=== PATIENT | female | born 1990 | race Hispanic/Latino ===

== ENCOUNTER 2017-12-07 09:51 | Emergency (ER) | payer OTHER | END 2017-12-07 10:45 | disposition home or self-care (01) | LOC: EDH 09:51 | DX: O99.612 Diseases of the digestive system complicating pregnancy, second trimester (principal); K02.9 Dental caries, unspecified; Z3A.15 15 weeks gestation of pregnancy | CPT/HCPCS: 99281 ==

== ENCOUNTER 2018-04-17 12:30 | Observation (INO) | payer MEDICAID ==
[~2018-04-17] VITALS: Ht 157.5 cm; Wt 84.4 kg
[2018-04-17 13:30] LABS: MEAN CORPUSCULAR HGB CONC 32.1 g/dL (32.0-36.0); MEAN CORPUSCULAR VOLUME 74.7 fL (79-99); NUCLEATED RED BLOOD CELLS 0.1 % (0.0-0.19); PLATELET COUNT (AUTO) 198 K/uL (130-400); RED BLOOD CELL COUNT(AUTO) 3.75 MIL/uL (4.00-5.50); RED CELL DISTRIBUTION WIDTH 17.9 % (11.0-15.5); WHITE BLOOD COUNT (AUTO) 8.2 K/uL (4.8-10.8)
[2018-04-17] MEDS ORDERED: LACTATED RINGERS 1000ML IV SCH (13:30)
[2018-04-17 13:35] LABS: APPEARANCE,URINE Cloudy (CLEAR); BILIRUBIN,URINE Negative (NEGATIVE); COLOR,URINE Yellow (YELLOW); GLUCOSE, URINE (UA) Negative (NEGATIVE); KETONES,URINE Negative (NEGATIVE); LEUKOCYTE ESTERASE ,URINE Large (NEGATIVE); NITRATE,URINE Negative (NEGATIVE); OCCULT BLOOD,URINE Nonhemolyzed Trace (NEGATIVE); PROTEIN,URINE Trace (NEGATIVE)
[2018-04-17 13:44] LABS: BACTERIA,URINE Few /HPF (None Seen); MUCUS,URINE Rare LPF (None Seen); RBC,URINE 0-1 /HPF (0-1); SQUAMOUS EPITHELIAL CELL,UR Moderate /HPF (0-2)
[2018-04-17] MEDS ORDERED: CEFTRIAXONE SODIUM 1 GM IVP SCH (13:45)
[2018-04-18 10:22] LABS: HEPATITIS Bs ANTIGEN SCREEN P Negative (Negative)
== END 2018-04-17 14:52 | disposition home or self-care (01) ==
LOC: EDH 12:30 → LDH 12:31
PROVIDERS: ADMIT Obstetrics & Gynecology; ATTEND Obstetrics & Gynecology
DX: O62.9 Abnormality of forces of labor, unspecified (principal); O26.853 Spotting complicating pregnancy, third trimester; O26.893 Other specified pregnancy related conditions, third trimester; R10.9 Unspecified abdominal pain; Z3A.37 37 weeks gestation of pregnancy
CPT/HCPCS: 36415; 81001; 85027; 86592; 86850; 86900; 86901; 87340; 96374; 99284; G0378 ×2; J0696; J7120; 96360

== ENCOUNTER 2019-06-14 09:44 | Emergency (ER) | payer MEDICAID, OTHER ==
[2019-06-14] MEDS ORDERED: HYDROCODONE/ACETAMINOPHEN 10/325 MG TAB ONE (10:07)
[2019-06-14] MEDS ORDERED: KETOROLAC TROMETHAMINE 60 MG/2 ML VIAL ONE (10:07)
== END 2019-06-14 12:05 | disposition home or self-care (01) ==
LOC: EDH 09:44
DX: S13.9XXA Sprain of joints and ligaments of unspecified parts of neck, initial encounter (principal); S33.5XXA Sprain of ligaments of lumbar spine, initial encounter; S09.90XA Unspecified injury of head, initial encounter; Z98.51 Tubal ligation status; Z98.890 Other specified postprocedural states; W01.0XXA Fall on same level from slipping, tripping and stumbling without subsequent striking against object, initial encounter; Y93.89 Activity, other specified; Y92.89 Other specified places as the place of occurrence of the external cause; Y99.8 Other external cause status
CPT/HCPCS: 70450; 72100; 72125; 96372; J1885

== ENCOUNTER 2023-03-05 14:11 | Emergency (ER) | payer OTHER ==
[~2023-03-05] VITALS: Ht 154.9 cm; Wt 67.1 kg
[2023-03-05 14:12] VITALS: BP 128/68; PULSE 90; RESP 14
[2023-03-05 15:39] LABS: RAPID GROUP A STREP negative (NEGATIVE)
[2023-03-05 15:44] LABS: SARS-CoV-2, RNA, NAAT NEGATIVE SARS CoV-2 (NEGATIVE)
[2023-03-05 15:50] LABS: INFLUENZA TYPE B Negative For Type B (NEGATIVE)
[2023-03-05 15:57] LABS: INFLUENZA TYPE A Positive For Type A (NEGATIVE)
[2023-03-05] MEDS ORDERED: CLIN-141 PO (16:45)
[2023-03-05] MEDS ORDERED: IBUP-2070 PO (16:45)
[2023-03-05] MEDS ORDERED: AMOX-426 PO (16:45)
[2023-03-05] MEDS ORDERED: ACET-2079 PO (16:45)
[2023-03-05] MEDS ORDERED: AMOX/CLAV 875/125MG TAB PO ONE (17:00)
[2023-03-05] MEDS ORDERED: CLINDAMYCIN 150 MG CAP PO ONE (17:00)
[2023-03-05] MEDS ORDERED: HYDROCODONE/ACETAMINOPHEN 10/325 MG TAB PO ONE (17:00)
== END 2023-03-05 17:10 | disposition home or self-care (01) ==
LOC: EDH 14:11
DX: J10.1 Influenza due to other identified influenza virus with other respiratory manifestations (principal); S02.5XXA Fracture of tooth (traumatic), initial encounter for closed fracture; K04.7 Periapical abscess without sinus; Z20.822 Contact with and (suspected) exposure to COVID-19; Z90.49 Acquired absence of other specified parts of digestive tract; Z98.890 Other specified postprocedural states; X58.XXXA Exposure to other specified factors, initial encounter; Y93.89 Activity, other specified; Y92.89 Other specified places as the place of occurrence of the external cause; Y99.8 Other external cause status
CPT/HCPCS: 99284; 87635; 87880; 87804 ×2; C9803

== ENCOUNTER 2023-10-09 01:07 | Inpatient (IN) | payer SELFPAY ==
[~2023-10-09] VITALS: Ht 154.9 cm; Wt 68.5 kg
[~2023-10-09 01:07] MED LIST: ACET-2079 PO; AMOX-426 PO; CLIN-141 PO; IBUP-2070 PO
[2023-10-09 01:33] LABS: BASOPHILS # (AUTO) 0.07 K/uL (0.00-0.20); BASOPHILS % (AUTO) 0.6 % (0.0-5.0); EOSINOPHILS # (AUTO) 0.18 K/uL (0.00-0.70); EOSINOPHILS % (AUTO) 1.6 % (0.0-8.0); HEMATOCRIT 22.8 % (36-48); IMMATURE GRANULOCYTE ABSOLUTE 0.04 K/uL (0-1); LYMPHOCYTES # (AUTO) 3.2 K/uL (1.0-4.8); LYMPHOCYTES % (AUTO) 28.1 % (21.0-51.0); MEAN CORPUSCULAR HEMOGLOBIN 17.2 pg (27.0-33.0); MEAN CORPUSCULAR HGB CONC 26.3 g/dL (32.0-36.0); MEAN CORPUSCULAR VOLUME 65.5 fL (79-99); MONOCYTES # (AUTO) 0.6 K/uL (0.1-1.0); MONOCYTES % (AUTO) 5.7 % (3.0-13.0); NEUTROPHILS # (AUTO) 7.2 K/uL (1.8-7.7); NEUTROPHILS % (AUTO) 63.6 % (40.0-77.0); PLATELET COUNT (AUTO) 252 K/uL (130-400); RED BLOOD CELL COUNT(AUTO) 3.48 MIL/uL (4.00-5.50); RED CELL DISTRIBUTION WIDTH 19.1 % (11.0-15.5); WHITE BLOOD COUNT (AUTO) 11.3 K/uL (4.8-10.8)
[2023-10-09 01:41] LABS: SARS-CoV-2, RNA, NAAT NEGATIVE SARS CoV-2 (NEGATIVE)
[2023-10-09 01:44] LABS: INFLUENZA TYPE A Negative For Type A (NEGATIVE); INFLUENZA TYPE B Negative For Type B (NEGATIVE)
[2023-10-09 01:44] LABS: CREATININE 0.7 mg/dL (0.5-1.0); POTASSIUM 3.5 mmol/L (3.5-5.1)
[2023-10-09 01:48] LABS: ALBUMIN 3.9 g/dL (3.5-5.0); BILIRUBIN,TOTAL 0.6 mg/dL (0.2-1.0); TOTAL PROTEIN, SERUM 7.4 g/dL (6.0-8.3)
[2023-10-09] MEDS ORDERED: IOHEXOL-350 50ML VIAL IV ONE (03:13)
[2023-10-09] MEDS: MORPHINE 4 MG SYG IVP ONE ×2 (03:21→07:26)
[2023-10-09] MEDS: LACTATED RINGERS 1000ML 957 ML IV ONE (03:23)
[2023-10-09] MEDS: CLINDAMYCIN IVPB 300MG/50ML 50 ML IV SCH (07:26)
[2023-10-09] MEDS: FENTANYL CITRATE PF 50 MCG/1 ML 2ML VIAL IVP ONE (08:53)
[2023-10-09] MEDS: SOLU-MEDROL 125MG VIAL IVP ONE (08:53)
[2023-10-09] MEDS: ONDANSETRON 4MG INJ IVP ONE (09:10)
[2023-10-09 11:17] LABS: APPEARANCE,URINE CLEAR (CLEAR); BILIRUBIN,URINE NEGATIVE (NEGATIVE); COLOR,URINE LIGHT-YELLOW (YELLOW); GLUCOSE, URINE (UA) NEGATIVE (NEGATIVE); KETONES,URINE NEGATIVE (NEGATIVE); LEUKOCYTE ESTERASE ,URINE 500 Leu/uL (NEGATIVE); NITRATE,URINE NEGATIVE (NEGATIVE); OCCULT BLOOD,URINE NEGATIVE (NEGATIVE); PROTEIN,URINE NEGATIVE (NEGATIVE); UROBILINOGEN,URINE 0.2 mg/dL (0.2-1.0)
[2023-10-09 11:29] LABS: ADD UA MICROSCOPIC YES
[2023-10-09] MEDS ORDERED: 0.9%NACL 50ML IV SCH (11:30)
[2023-10-09 11:38] LABS: MUCUS,URINE RARE LPF (None Seen); SQUAMOUS EPITHELIAL CELL,UR MOD /HPF (0-2)
[2023-10-09 12:31] LABS: HEMATOCRIT 26.2 % (36-48)
[2023-10-09 12:43] LABS: HEMOGLOBIN A1C 4.9 % (4.0-6.0)
[2023-10-09] MEDS: 0.9%NACL 1000ML 1,000 ML IV SCH (12:52)
[2023-10-09] MEDS: ZOSYN 3.375GM +NS 50ML IVPB SCH (12:52)
[2023-10-09 13:13] LABS: THYROID STIMULATING HORMONE 1.05 uIU/mL (0.36-3.74)
[2023-10-09 13:35] LABS: % IRON SATURATION 14.5 % (22-44)
[2023-10-09 14:44] LABS: RETICULOCYTE % (AUTO) 1.39 % (0.42-2.23)
[2023-10-09 15:45] VITALS: BP 145/75; PULSE 77; RESP 20
[2023-10-09] MEDS: FAMOTIDINE 20MG VIAL IV SCH (19:47)
[2023-10-09] MEDS: KETOROLAC 15MG/ML VIAL (15MG/ML) IV PRN (19:49)
[2023-10-09 20:00] VITALS: BP 124/67; PULSE 89; RESP 20; O2SAT 99
[2023-10-10] VITALS: BP 108/59; PULSE 73; RESP 20
[2023-10-10 04:00] VITALS: BP 110/68; PULSE 59; RESP 20
[2023-10-10 07:15] LABS: BASOPHILS # (AUTO) 0.04 K/uL (0.00-0.20); BASOPHILS % (AUTO) 0.3 % (0.0-5.0); EOSINOPHILS # (AUTO) 0.01 K/uL (0.00-0.70); EOSINOPHILS % (AUTO) 0.1 % (0.0-8.0); HEMATOCRIT 24.1 % (36-48); IMMATURE GRANULOCYTE ABSOLUTE 0.05 K/uL (0-1); LYMPHOCYTES # (AUTO) 2.5 K/uL (1.0-4.8); LYMPHOCYTES % (AUTO) 19.8 % (21.0-51.0); MEAN CORPUSCULAR HEMOGLOBIN 19.2 pg (27.0-33.0); MEAN CORPUSCULAR HGB CONC 27.4 g/dL (32.0-36.0); MEAN CORPUSCULAR VOLUME 70.1 fL (79-99); MONOCYTES # (AUTO) 0.7 K/uL (0.1-1.0); MONOCYTES % (AUTO) 5.7 % (3.0-13.0); NEUTROPHILS # (AUTO) 9.4 K/uL (1.8-7.7); NEUTROPHILS % (AUTO) 73.7 % (40.0-77.0); PLATELET COUNT (AUTO) 226 K/uL (130-400); RED BLOOD CELL COUNT(AUTO) 3.44 MIL/uL (4.00-5.50); RED CELL DISTRIBUTION WIDTH 22.8 % (11.0-15.5); WHITE BLOOD COUNT (AUTO) 12.7 K/uL (4.8-10.8)
[2023-10-10 07:24] LABS: CREATININE 0.6 mg/dL (0.5-1.0); POTASSIUM 3.8 mmol/L (3.5-5.1)
[2023-10-10 08:00] VITALS: BP 141/66; PULSE 69; RESP 18; O2SAT 97
[2023-10-10 11:49] LABS: RETICULOCYTE % (AUTO) 1.55 % (0.42-2.23)
[2023-10-10 12:00] VITALS: BP 127/69; PULSE 58; RESP 18
[2023-10-10] MEDS ORDERED: IRON SUCROSE COMPLEX 300 MG in 0.9% NACL 250ML 250 ML IV SCH (14:00)
[2023-10-10] MEDS ORDERED: COMPOUND IV MISC 1 EACH IVSOLN MISC PRN (14:30)
[2023-10-10] MEDS ORDERED: VANCOMYCIN PROTOCOL PER PHARMACY IV SCH (15:30)
[2023-10-10] MEDS ORDERED: BENZONATATE 100 MG CAPSULE PO PRN (15:30)
[2023-10-10] MEDS: GUAIFENESIN-CODEINE 5 ML SYRUP PO PRN (15:38)
[2023-10-10] MEDS: AMP/SULBAC 3GM+NS 100ML 100 ML IV SCH (15:40)
[2023-10-10 16:00] VITALS: BP 116/71; PULSE 64; RESP 20
[2023-10-10] MEDS: VANCOMYCIN 1G/250ML KIT 250 ML IV SCH (16:49)
[2023-10-10 20:00] VITALS: BP 124/64; PULSE 70; RESP 17; O2SAT 98
[2023-10-10] MEDS: IRON SUCROSE COMPLEX 300 MG in 0.9% NACL 250ML 250 ML IV SCH (20:38)
[2023-10-11] VITALS (8 sets, daily range): BP systolic 113–140; BP diastolic 59–77; PULSE 50–78; RESP 16–18; O2SAT 98–99
[2023-10-11] MEDS ORDERED: NITROGLYCERIN 0.4 MG SL TAB SL PRN (02:00)
[2023-10-11 05:06] LABS: BASOPHILS # (AUTO) 0.07 K/uL (0.00-0.20); BASOPHILS % (AUTO) 0.8 % (0.0-5.0); EOSINOPHILS # (AUTO) 0.13 K/uL (0.00-0.70); EOSINOPHILS % (AUTO) 1.4 % (0.0-8.0); HEMATOCRIT 26.1 % (36-48); IMMATURE GRANULOCYTE ABSOLUTE 0.03 K/uL (0-1); LYMPHOCYTES # (AUTO) 3.7 K/uL (1.0-4.8); LYMPHOCYTES % (AUTO) 40.2 % (21.0-51.0); MEAN CORPUSCULAR HEMOGLOBIN 20.7 pg (27.0-33.0); MEAN CORPUSCULAR HGB CONC 28.4 g/dL (32.0-36.0); MEAN CORPUSCULAR VOLUME 72.9 fL (79-99); MONOCYTES # (AUTO) 0.4 K/uL (0.1-1.0); MONOCYTES % (AUTO) 4.6 % (3.0-13.0); NEUTROPHILS # (AUTO) 4.8 K/uL (1.8-7.7); NEUTROPHILS % (AUTO) 52.7 % (40.0-77.0); PLATELET COUNT (AUTO) 187 K/uL (130-400); RED BLOOD CELL COUNT(AUTO) 3.58 MIL/uL (4.00-5.50); RED CELL DISTRIBUTION WIDTH 22.6 % (11.0-15.5); WHITE BLOOD COUNT (AUTO) 9.1 K/uL (4.8-10.8)
[2023-10-11 05:57] LABS: CREATININE 0.7 mg/dL (0.5-1.0); MAGNESIUM 1.8 mg/dL (1.80-2.40); PHOSPHORUS 4.1 mg/dL (2.5-4.9); POTASSIUM 3.4 mmol/L (3.5-5.1)
[2023-10-11] MEDS ORDERED: PHENOL 177 ML BOTTLE PO PRN (11:30)
[2023-10-11] MEDS: VANCOMYCIN 1G/250ML KIT 250 ML IV SCH (21:40)
[2023-10-11] MEDS: MORPHINE 2 MG SYG IVP PRN (21:47)
[2023-10-11] MEDS ORDERED: POTASSIUM CHLORIDE 10% ELIXIR 20 MEQ/15 ML UDCUP PO PRN (22:00)
[2023-10-11] MEDS ORDERED: POTASSIUM CHLORIDE 20MEQ/100ML 100 ML IV PRN (22:00)
[2023-10-12] VITALS (7 sets, daily range): BP systolic 98–136; BP diastolic 49–70; PULSE 50–66; RESP 16–18; O2SAT 99
[2023-10-12] MEDS: IRON SUCROSE COMPLEX 300 MG in 0.9% NACL 250ML 250 ML IV SCH (01:37)
[2023-10-12 05:05] LABS: BASOPHILS # (AUTO) 0.08 K/uL (0.00-0.20); EOSINOPHILS # (AUTO) 0.19 K/uL (0.00-0.70); EOSINOPHILS % (AUTO) 2.4 % (0.0-8.0); HEMATOCRIT 26.5 % (36-48); IMMATURE GRANULOCYTE ABSOLUTE 0.03 K/uL (0-1); LYMPHOCYTES # (AUTO) 3.6 K/uL (1.0-4.8); LYMPHOCYTES % (AUTO) 45.2 % (21.0-51.0); MEAN CORPUSCULAR HEMOGLOBIN 20.8 pg (27.0-33.0); MEAN CORPUSCULAR HGB CONC 29.1 g/dL (32.0-36.0); MEAN CORPUSCULAR VOLUME 71.6 fL (79-99); MONOCYTES # (AUTO) 0.3 K/uL (0.1-1.0); NEUTROPHILS # (AUTO) 3.8 K/uL (1.8-7.7); PLATELET COUNT (AUTO) 203 K/uL (130-400); RED CELL DISTRIBUTION WIDTH 24.1 % (11.0-15.5)
[2023-10-12 05:21] LABS: CREATININE 0.6 mg/dL (0.5-1.0); POTASSIUM 3.5 mmol/L (3.5-5.1)
[2023-10-12] MEDS: KCL 20 MEQ ERTAB PO PRN (06:14)
[2023-10-13] VITALS: BP 130/68; PULSE 58; RESP 18
[2023-10-13] MEDS: VANCOMYCIN 1G/250ML KIT 250 ML IV SCH
[2023-10-13 04:00] VITALS: BP 128/72; PULSE 69; RESP 18
[2023-10-13 05:23] LABS: BASOPHILS # (AUTO) 0.09 K/uL (0.00-0.20); EOSINOPHILS % (AUTO) 3.2 % (0.0-8.0); HEMATOCRIT 28.6 % (36-48); LYMPHOCYTES # (AUTO) 4.1 K/uL (1.0-4.8); MEAN CORPUSCULAR HEMOGLOBIN 21.2 pg (27.0-33.0); MEAN CORPUSCULAR HGB CONC 28.7 g/dL (32.0-36.0); MEAN CORPUSCULAR VOLUME 73.9 fL (79-99); MONOCYTES # (AUTO) 0.4 K/uL (0.1-1.0); MONOCYTES % (AUTO) 4.7 % (3.0-13.0); NEUTROPHILS # (AUTO) 4.3 K/uL (1.8-7.7); PLATELET COUNT (AUTO) 228 K/uL (130-400); RED BLOOD CELL COUNT(AUTO) 3.87 MIL/uL (4.00-5.50); RED CELL DISTRIBUTION WIDTH 25.7 % (11.0-15.5); WHITE BLOOD COUNT (AUTO) 9.3 K/uL (4.8-10.8)
[2023-10-13 05:36] LABS: ALBUMIN 2.8 g/dL (3.5-5.0); BILIRUBIN,TOTAL 0.4 mg/dL (0.2-1.0); CREATININE 0.6 mg/dL (0.5-1.0); MAGNESIUM 1.9 mg/dL (1.80-2.40); POTASSIUM 3.5 mmol/L (3.5-5.1)
[2023-10-13 08:00] VITALS: BP 130/70; PULSE 51; RESP 16
[2023-10-13 08:01] LABS: LYMPHOCYTES % (MANUAL) 43 % (22-44); MAN.DIFF COMMENT-IMPRESSION MANUAL DIFFERENTIAL; MONOCYTES % (MANUAL) 1 % (2-9); PLATELET MORPHOLOGY COMMENT ADEQUATE; SEGMENTED NEUTROPHILS % 56 % (40-70); TOTAL CELLS COUNTED 100
[2023-10-13 08:12] VITALS: O2SAT 99
[2023-10-13] MEDS ORDERED: FOLI20CA PO (11:36)
[2023-10-13] MEDS ORDERED: FERS325 PO (11:36)
[2023-10-13 12:00] VITALS: BP_SYST 120; BP_SYST 127; BP_DIAS 67; BP_DIAS 84; PULSE 54; PULSE 74; RESP 16; RESP 18
[2023-10-13 16:00] VITALS: BP 120/75; PULSE 54; RESP 20
== END 2023-10-13 17:14 | disposition home or self-care (01) | DRG 603 ==
LOC: EDH 01:07 → EDHIP 01:08 → 3CH 15:40 → 3DH 10-10 18:10
PROVIDERS: ADMIT Internal Medicine; ATTEND Internal Medicine
PROC: 30233N1 Transfusion of Nonautologous Red Blood Cells into Peripheral Vein, Percutaneous Approach (ICD-10-PCS; principal; 2023-10-09)
DX: L03.211 Cellulitis of face (principal); Z20.822 Contact with and (suspected) exposure to COVID-19; N92.0 Excessive and frequent menstruation with regular cycle; K02.9 Dental caries, unspecified; D50.9 Iron deficiency anemia, unspecified; E66.9 Obesity, unspecified; K04.7 Periapical abscess without sinus; K83.8 Other specified diseases of biliary tract; Z98.891 History of uterine scar from previous surgery; Z68.28 Body mass index [BMI] 28.0-28.9, adult; Z90.49 Acquired absence of other specified parts of digestive tract
CPT/HCPCS: 36415; 36430; 70487; 71045; 80048; 80053; 80202; 81001; 82607; 82728; 83036; 83605; 83735; 84100; 84145; 84443; 84484; 84703; 85014; 85018; 85025; 85045; 86140; 86850; 86900; 86901; 86923; 87086; 87635; 87804; 87880; 93005; G0378; J0295; J1756; J1885; J2270; J2405; J2543; J2919; J3010; J3370; J3490; J7030; J7050; J7120; P9016; Q9967

== ENCOUNTER 2024-06-26 12:53 | Emergency (ER) | payer SELFPAY ==
[~2024-06-26] VITALS: Ht 154.9 cm; Wt 68.9 kg
[~2024-06-26 12:53] MED LIST changes: -ACET-2079 PO; -AMOX-426 PO; -CLIN-141 PO; +FERS325 PO; +FOLI20CA PO; -IBUP-2070 PO
--- NOTE | 2024-06-26 13:25 | ERN ---
General Chief Complaint: Rib Pain Stated Complaint: RIGHT RIB PAIN Time Seen by MD: 12:56 Source: patient History of Present Illness Initial Comments Patient is a 34-year-old female coming in with a right-sided rib pain. Patient states since this rib pain began about a week ago after she fell down. She states that the pain is localized to the right rib area. No shortness of breath. Allergies: Coded Allergies: No Known Drug Allergies (Unverified Allergy, Unknown, 04/17/18) Home Meds Active Scripts Ferrous Sulfate (Ferrous Sulfate) 325 Mg (65 Mg Iron) Ectab, 325 MG PO DAILY, #30 TAB.EC Prov:MITCHEL BRIZUELA SHANK CARRIER 10/13/23 Folic Acid (Folic Acid) 20 Mg Capsule, 1 MG PO DAILY, #30 CAP Prov:MITCHEL BRIZUELA SHANK CARRIER 10/13/23 Past Medical History Past Medical History: Anemia Past Surgical History: Cholecystectomy, Social History Social History: Negative, Lives with family Female( History) LMP: May 21, 2024 ROS Dictation CONSTITUTIONAL: No chills, no fever, no weakness, no diaphoresis, no malaise. HEAD/FACE: No signs of trauma. EENT: No eye pain, no blurred vision, no tearing, no double vision, no ear pain, no ear discharge, no nose pain, no nasal congestion, no throat pain, no throat swelling, no mouth pain. RESPIRATORY: No cough, no orthopnea, no SOB, no stridor, no wheezing. CARDIOVASCULAR: No chest pain, no edema, no palpitations, no syncope. GASTROINTESTINAL/ABDOMINAL: No abdominal pain, no constipation, no diarrhea, no nausea, no vomiting. GENITOURINARY: No abnormal discharge, no dysuria, no frequent urination, no hematuria. No complaints of pain in the genitals. MUSCULOSKELETAL: No back pain, no gout, no joint pain, no joint swelling, no muscle pain, no muscle stiffness, no neck pain. INTEGUMENTARY: No change in color, no change in hair/nails, no dryness, no lesion, no lumps, no rash. NEUROLOGICAL/PSYCH: No anxiety, not depressed, no emotional problem, no headache, no numbness, no pre-existing deficit, no history of seizures, no tremors, no weakness. HEMATOLOGIC/LYMPHATIC: Not anemic, no history of blood clots, no apparent bleeding, no bruising, glands not swollen. All Systems Negative, Except as Noted. Physical Exam Physical Exam Dictation VITAL SIGNS: Reviewed. GENERAL APPEARANCE: Alert, oriented x3, no acute distress, obese. HEAD AND FACE: Non-traumatic. EYES: PERRL, pink conjunctivas, eyelid no trauma, anterior chamber clear. EARS: Pinnas intact and no signs of trauma or erythema. Ear canals clear and no discharge. TMs no erythema. NOSE: No discharge, no bleeding. OROPHARYNX: Mouth normal, teeth no caries, tongue pink. Pharynx clear, no erythema. Tonsils no exudates, no abscesses noted. Mucous membrane moist. NECK: Supple, non-tender, no thyromegaly, no masses, no JVD, no bruits. BREAST: Deferred. CHEST: No tenderness, no crepitus, no paradoxical movement, no retractions. LUNGS: Clear, well-ventilated, symmetric, no rales, no wheezing, no rhonchi, no stridor, good breath sounds bilaterally. HEART: Regular rate, regular rhythm, no murmur, no gallops. VASCULAR: No peripheral edema. ABDOMEN: Soft, positive bowel sounds, nondistended, no guarding, nontender, no rebound, no masses no hepatomegaly, no splenomegaly, no Fisher's sign, no hernias. RECTAL: Deferred. GENITAL: Deferred. NEUROLOGICAL: Normal speech, gross motor function intact, gross sensory function intact. MUSCULOSKELETAL: Neck nontender, full range of motion, back nontender, full range of motion. EXTREMITIES: Nontender, full range of motion. SKIN: Color pink, dry, no turgor, no rash, no lacerations, no abrasions, no contusions. LYMPHATICS: Deferred. Results Laboratory and Microbiology Labs Reviewed?: Yes EKG/XRAY/US/CT/MRI X-RAY Comment [place] [id number] [place] [id number] IMAGING REPORT Signed PATIENT: FAVIOLA HARRELL MR#: [id number] : 1990 SEX: F AGE: 34 LOCATION: [facility] ORDER [id number] STATUS: REG REPORT#: [id number] SERVICE 1505 REASON: fall ORDERING PHYSICIAN: ALEX WESTFALL MD PROCEDURE: RIB RT W C - RIBS UNI RT W PA CHEST 3+ VWS Exam Type: RIBS UNI RT W PA CHEST 3+ VWS Clinical Information: fall Comparison: None Findings: Routine views reveal no evidence of fracture, dislocation, destructive process, or other rib abnormalities. No soft tissue abnormality is noted either. There is no evidence of pneumothorax. IMPRESSION: NORMAL RIB SERIES. DICTATED BY: JAI RODRIGUEZ MD DATE: 06/26/24 163 ELECTRONICALLY SIGNED BY: JAI RODRIGUEZ MD DATE: 06/26/24 1641 MDM MDM: Differential diagnosis: Costochondritis, chest wall pain, Rationale: Tests considered and ordered secondary to shared decision making include: Previous outside records reviewed: Old ER visits. Risk of complication and/or morbidity or mortality of patient management: None Medications-Per medication reconciliation Patient is a 34-year-old female coming in to be evaluated for left-sided chest pain. She states that she fell down and has been having discomfort since then. This happened several days ago. X-ray did not disclose acute findings. Patient will be discharged in stable condition with a diagnosis of costochondritis. ED Course Orders Procedure Category Date Status Time ,Urine Test LAB 06/26/24 Logged 12:58 Acetaminophen 500mg PHA 06/26/24 Complete Tab (Tylenol 500mg T 13:00 Ribs Uni Rt W Pa RAD 06/26/24 Resulted Chest 3+ Vws 15:05 Current Medications Medications (Trade) Dose Ordered Sig/Jojo Route PRN Reason Start Time Stop Time Status Last Admin Dose Admin Acetaminophen (TYLenol 500MG TAB) 1,000 mg ONCE ONCE PO 06/26/24 13:00 06/26/24 13:01 DC 06/26/24 16:15 Vital Signs Date Time Temp Pulse Resp B/P (MAP) Pulse Ox O2 Delivery O2 Flow Rate FiO2 06/26/24 16:01 97.9 84 18 124/80 95 Room Air* 0 21 06/26/24 12:54 97.5 90 18 126/66 94 Room Air 0 DX & DISP Disposition: Discharge Departure Impression: Primary Impression: Chest wall pain Additional Impression: Costochondritis, acute Condition: Stable Scripts Methocarbamol (Robaxin) 750 Mg Tab 1 TAB PO BID for 7 Days, #14 TAB 0 Refills Prov: ALEX WESTFALL MD 06/26/24 Naproxen (Naproxen) 500 Mg Tablet 1 TAB PO BID for pain for 7 Days, #14 TAB 0 Refills Prov: ALEX WESTFALL MD 06/26/24 Additional Instructions: FOLLOW-UP WITH PRIMARY CARE PROVIDER IN 1 TO 2 DAYS. TAKE MEDICATIONS DIRECTED HERE IN THE EMERGENCY ROOM. OKAY TO CONTINUE HOME MEDICATIONS UNLESS OTHERWISE DISCUSSED DURING YOUR VISIT IN THE EMERGENCY ROOM TODAY. RETURN TO YOUR NEAREST EMERGENCY ROOM IF SYMPTOMS WORSEN OR IF THERE IS NO IMPROVEMENT. CALL 911 IF YOU NEED IMMEDIATE ASSISTANCE. TAKE TYLENOL [id number] NEEDED AND IF NO CONTRAINDICATIONS ARE PRESENT. INCREASE ORAL HYDRATION. A WOUND CULTURE OR URINE CULTURE WAS ORDERED HERE IN THE EMERGENCY ROOM DEPARTMENT PLEASE FOLLOW-UP WITH PRIMARY CARE PROVIDER AND ADVISE THEM TO GET REPEAT PORTS FROM OUR FACILITY. IF YOU HAD ANY [place] WRAP/SPLINTS THAT WERE APPLIED HERE, PLEASE DO NOT REMOVE THEM UNTIL YOU SEE YOUR PRIMARY CARE OR SPECIALTY. Referrals: Referrals: SELF,REFERRAL (PCP) JULIA GOTTLIEB MD Time of Disposition: 16:44 ALEX WESTFALL MD Jun 26, 2024 13:25
[2024-06-26] MEDS: acetaMINOPHEN 500 MG TABLET PO ONE (16:15)
--- NOTE | 2024-06-26 16:41 | HMCIMG ---
Exam Type: RIBS UNI RT W PA CHEST 3+ VWS Clinical Information: fall Comparison: None Findings: Routine views reveal no evidence of fracture, dislocation, destructive process, or other rib abnormalities. No soft tissue abnormality is noted either. There is no evidence of pneumothorax. IMPRESSION: NORMAL RIB SERIES.
[2024-06-26] MEDS ORDERED: METH-662 PO (16:45)
[2024-06-26] MEDS ORDERED: NAPR-1194 PO (16:45)
[2024-06-26] MEDS: traMADol HCL 50 MG TABLET PO ONE (17:19)
[2024-06-26 17:46] VITALS: BP 122/74; PULSE 88; RESP 18; TEMP 97; O2SAT 97
== END 2024-06-26 18:16 | disposition home or self-care (01) ==
LOC: EDH 12:53
DX: M94.0 Chondrocostal junction syndrome [Tietze] (principal); Z79.899 Other long term (current) drug therapy; Z90.49 Acquired absence of other specified parts of digestive tract; Z98.890 Other specified postprocedural states; W18.39XA Other fall on same level, initial encounter; Y93.89 Activity, other specified; Y92.89 Other specified places as the place of occurrence of the external cause; Y99.8 Other external cause status
CPT/HCPCS: 71101; 99283